=== PATIENT | female | born 1985 ===

== ENCOUNTER 2017-03-31 15:22 | Emergency (ER) | payer SELFPAY ==
[2017-03-31 15:22] VITALS: BMI 28.3
[2017-03-31 15:42] VITALS: BP 128/72; PULSE 64; RESP 18; TEMP 98.9; O2SAT 99
[2017-03-31] MEDS ORDERED: Lactated Ringer's 1,000 ML IV STA (16:13)
--- NOTE | 2017-03-31 16:17 | ED PDOC ---
Syncope/Near Syncope/Dizziness History Per: Patient History/Exam Limitations: no limitations Onset/Duration Of Symptoms: Days Current Symptoms Are (Timing): Still Present Activity At Onset Of Symptoms: Lying, Sitting, Walking, Change In Head Position Associated Symptoms Preceding Syncopal Episode: Lightheadedness, Vertigo Seizure Or Post-ictal Symptoms: None Possible Causative Factor(s): Vertigo Fall Associated With With Symptoms: No Additional Complaint(s): CC: dizziness HPI: 31 y/o woman w/ PMH of gastritis (EGD 03/2017) presents to the ED with dizziness. The patient reports that the dizziness has been going on for 1 week with complaints of bilateral diplopia, fatigue, low appetite, and epigastric pain radiating to her back. The patient denies nausea, vomiting, palpitations, LOC, and head trauma. The patient describes the dizziness as the "room spinning " while sitting and walking. The patient works as a housekeeper/laundry assistant for an office building and states that she drinks little water because she is busy working. The patient does not smoke, consume alcohol, or use drugs. The patient denies headaches, chest pain, SOB, dysuria, and fever. PMH: gastritis PSH: EGD 03/2016 SOC: denies smoking, alcohol, and drugs ROS: negative for 12 points assessed unless otherwise reported in HPI - Symptoms Of CVA Character Of Deficits: Left: Vision Problems (bilateral diplopia), Right: Vision Problems Current Coumadin Use?: No Recent Head Trauma: No - Risk Factors PE Risk Factors: Neg: Extremity Immobilization/Fx, Decreased Mobilty /Activity, Recent Major Surgery, Recent Hospitalization, Active Cancer, Previous DVT, Previous PE, CHF, Venous Stasis, Estrogen Usage, , Post-, Recent Major Trauma TAD Risk Factors: Neg: Hypertension, Connective Tissue Disease, Marfan's Syndrome, Grover- Danlos Syndrome, Aortic Valve Disease, Active , Tumer's Syndrome, First Degree Relative With TAD, Sudden Onset Of Pain, Migration Of Pain, New Neurologic Symptoms Risk Factors (Syncope): Neg: H/O Ventricular Arrhythmias, Known Coronary Artery Disease, H/O Severe Valvular Disease, Congestive Heart Failure, H/O Congenital Heart Disease, Family History Of Sudden , Exertional Syncope, Brugada Syndrome <Pablo Hendrix - Last Filed: 03/31/17 17:34> <Brenda Ricks - Last Filed: 03/31/17 17:38> Time Seen by Provider: 03/31/17 15:50 Chief Complaint (Nursing): Abdominal Pain Supervising Attending Note - Supervising Attending Note The Documented history was done by the: Physician Icing Mixer, Attending Physician The documented physical exam was done by the: Physician Icing Mixer, Attending Physician - Attestation: I have personally seen and examined this patient.: Yes I have fully participated in the care of the patient.: Yes I have reviewed all pertinent clinical information: Yes <Brenda Ricks - Last Filed: 03/31/17 17:38> Past Medical History Vital Signs: Last Vital Signs Temp 98.9 F 03/31/17 15:39 Pulse 64 03/31/17 15:39 Resp 18 03/31/17 15:39 BP 128/72 03/31/17 15:39 Pulse Ox 99 03/31/17 15:39 - Medical History PMH: Gastritis, Hypercholesterolemia Denies: Chronic Kidney Disease - Family History Family History: States: Unknown Family Hx - Immunization History Hx Tetanus Toxoid Vaccination: No Hx Influenza Vaccination: No Hx Pneumococcal Vaccination: No <Pablo Hendrix - Last Filed: 03/31/17 17:34> Vital Signs: Last Vital Signs Temp 98.9 F 03/31/17 15:39 Pulse 64 03/31/17 15:39 Resp 18 03/31/17 15:39 BP 128/72 03/31/17 15:39 Pulse Ox 99 03/31/17 17:34 <Brenda Ricks - Last Filed: 03/31/17 17:38> - Home Medications Home Medications: Ambulatory Orders Medication Instructions Recorded Meclizine [Antivert] 25 mg PO Q6 PRN #30 tab 03/31/17 - Allergies Allergies/Adverse Reactions: Allergies Allergy/AdvReac Type Severity Reaction Status Date / Time No Known Allergies Allergy Verified 04/20/16 08:33 Review of Systems ROS Statement: Except As Marked, All Systems Reviewed And Found Negative Constitutional: Positive for: Weakness. Negative for: Fever, Chills, Sweats, Weight loss Eyes: Positive for: Vision Change (bilateral diplopia) ENT: Negative for: Ear Pain Cardiovascular: Negative for: Chest Pain, Palpitations, Orthopnea Respiratory: Negative for: Cough, Shortness of Breath, Wheezing Gastrointestinal: Negative for: Nausea, Vomiting, Diarrhea Genitourinary Female: Negative for: Dysuria Skin: Negative for: Rash Neurological: Positive for: Weakness, Dizziness. Negative for: Change in Speech , Confusion, Altered Mental Status, Headache <Pablo Hendrix - Last Filed: 03/31/17 17:34> Physical Exam - Physical Exam Appears: Positive for: No Acute Distress Head Exam: Positive for: ATRAUMATIC, NORMOCEPHALIC Skin: Positive for: Pallor Eye Exam: Positive for: EOMI, PERRL. Negative for: Nystagmus ENT: Positive for: Normal ENT Inspection Neck: Positive for: Painless ROM, Supple Cardiovascular/Chest: Positive for: Regular Rate, Rhythm, Chest Non Tender. Negative for: Edema, Murmur, Bradycardia, Tachycardia Respiratory: Positive for: Normal Breath Sounds. Negative for: Decreased Breath Sounds, Accessory Muscle Use, Wheezing, Respiratory Distress Pulses-Carotid (L): 2+ Pulses-Carotid (R): 2+ Pulses-Dorsalis Pedis (L): 2+ Pulses-Dorsalis Pedis (R): 2+ Pulses-Post. Tibialis (L): 2+ Pulses-Post. Tibialis (R): 2+ Pulses-Radial (L): 2+ Pulses-Radial (R): 2+ Gastrointestinal/Abdominal: Positive for: Bowel Sounds, Soft, Tenderness (RLQ tenderness, negative Dejesus's sign). Negative for: Mass, Distended, Guarding Extremity: Negative for: Tenderness, Pedal Edema, Calf Tenderness Neurologic/Psych: Positive for: Alert, construction materials tester II-XII, Oriented. Negative for: Motor/Sensory Deficits, Aphasia, Facial Droop <Pablo Hendrix - Last Filed: 03/31/17 17:34> - Laboratory Results Result Diagrams: 03/31/17 16:20 03/31/17 16:20 - ECG O2 Sat by Pulse Oximetry: 99 <Pablo Hendrix - Last Filed: 03/31/17 17:34> - Laboratory Results Result Diagrams: 03/31/17 16:20 03/31/17 16:20 <Brenda Ricks - Last Filed: 03/31/17 17:38> Medical Decision Making Medical Decision Makin31 y/o woman w/ PMH of gastritis (EGD 03/2017) presents to the ED with dizziness CBC w/ diff: WNL CMP: WNL magnesium: wNL lipase: WNL UA: WNL EKG: sinus bradycardia, no ST segment elevation/depression, no prolonged QT, no prolonged segments IV NS bolus meclizine 50 mg PO re-evaluated 17:30 patient feels better meclizine helped Dispo: discharge home, counseled to follow up w/ PMD, discharged w/ meclizine 25 mg PO Q6 #30 <Pablo Hendrix - Last Filed: 03/31/17 17:34> Disposition - Patient ED Disposition Is Patient to be Admitted: No Discussed With Dr.: Brenda Ricks Counseled Patient/Family Regarding: Studies Performed, Diagnosis, Need For Followup, Rx Given - Disposition Disposition: Routine/Home Disposition Time: 17:33 - POA Present On Arrival: None <Pablo Hendrix - Last Filed: 03/31/17 17:34> <Brenda Ricks - Last Filed: 03/31/17 17:38> - Clinical Impression Clinical Impression: Vertigo, BPPV (benign paroxysmal positional vertigo) - Disposition Referrals: [facility] [Outside] Condition: IMPROVED Prescriptions: Meclizine [Antivert] 25 mg PO Q6 PRN #30 tab PRN Reason: Dizziness Instructions: Dizziness (ED) Print Language: ENGLISH
[2017-03-31 16:44] LABS: BASO # 0.1 K/uL (0.0-0.2); EOS # 0.2 K/uL (0.0-0.7); EOS % 1.8 % (0.0-4.0); HEMOGLOBIN 12.2 g/dL (12.0-16.0); LYMPH # 3.6 K/uL (1.0-4.3); LYMPH % 34.8 % (20.0-40.0); MEAN CELL VOLUME 86.2 fl (81.0-99.0); MEAN CORPUSCULAR HEMOGLOBIN 28.7 pg (27.0-31.0); MEAN CORPUSCULAR HGB CONC 33.2 g/dL (33.0-37.0); MEAN PLATELET VOLUME 8.3 fl (7.2-11.7); MONO # 0.5 K/uL (0.0-0.8); MONO % 4.8 % (0.0-10.0); NEUT % 57.6 % (50.0-75.0); NRBC % 0.1 % (0.0-0.0); RBC 4.25 Mil/uL (3.80-5.20); RED CELL DISTRIBUTION WIDTH 13.5 % (11.5-14.5); WHITE BLOOD COUNT 10.4 K/uL (4.8-10.8)
[2017-03-31 16:47] LABS: SQUAMOUS EPITHIAL < 1 /hpf (0-5); URINE BACTERIA RARE (<OCC); URINE BILIRUBIN NEGATIVE (NEGATIVE); URINE BLOOD SMALL (NEGATIVE); URINE CLARITY CLEAR (Clear); URINE COLOR YELLOW (YELLOW); URINE GLUCOSE (UA) NEG (Normal); URINE LEUKOCYTE ESTERASE NEG Leu/uL (Negative); URINE NITRATE NEGATIVE (NEGATIVE); URINE PROTEIN NEGATIVE (NEGATIVE); URINE UROBILINOGEN 0.2-1.0 mg/dL (0.2-1.0)
[2017-03-31 16:56] LABS: ALB/GLOB RATIO 1.5 (1.0-2.1); ALBUMIN 4.3 g/dL (3.5-5.0); ALT/SGPT 30 U/L (9-52); AST/SGOT 28 U/L (14-36); BLOOD UREA NITROGEN 13 mg/dl (7-17); CALCIUM 9.4 mg/dL (8.4-10.2); GFR AFRICAN-AMERICAN > 60; GFR NON-AFRICAN AMERICAN > 60; LIPASE 97 U/L (23-300)
--- NOTE | 2017-04-01 08:12 | CARD ---
APPROVED REPORT EKG Measurement Heart [id number] <Conclusion> Sinus bradycardia Otherwise normal ECG
== END 2017-03-31 17:45 | disposition home or self-care (01) ==
LOC: H.ER 15:22
DX: R42 Dizziness and giddiness (principal); E78.00 Pure hypercholesterolemia, unspecified

== ENCOUNTER 2017-04-18 15:09 | Emergency (ER) | payer OTHER, SELFPAY ==
[2017-04-18 15:09] VITALS: BMI 28.3
[2017-04-18 15:38] VITALS: BP 137/61; PULSE 58; RESP 18; TEMP 98.3; O2SAT 99
[2017-04-18] MEDS ORDERED: Alum-Mag Hydrox-Simethicone Susp (30 mL) PO STA (16:31)
--- NOTE | 2017-04-18 16:39 | ED PDOC ---
HPI: Abdomen Time Seen by Provider: 04/18/17 16:14 Chief Complaint (Nursing): GI Problem Chief Complaint (Provider): Epigastric Pain History Per: Patient History/Exam Limitations: no limitations Onset/Duration Of Symptoms: Days (x3) Current Symptoms Are (Timing): Still Present Location Of Pain/Discomfort: Epigastric Additional Complaint(s): Kandace Bunch is a 31 year old female, with a past medical history of gastritis and hypercholesterolemia, who presents to the emergency department complaining of epigastric pain associated with nausea and vomit onset for 3 days secondary to right posterior shoulder pain. Patient states that she did not feel nauseous today but that she has not eaten. She denies any further medical complaints. PMD: None provided Past Medical History Reviewed: Historical Data, Nursing Documentation, Vital Signs Vital Signs: Last Vital Signs Temp 98.3 F 04/18/17 15:34 Pulse 58 L 04/18/17 15:34 Resp 18 04/18/17 15:34 BP 137/61 04/18/17 15:34 Pulse Ox 99 04/18/17 16:54 - Medical History PMH: Gastritis, Hypercholesterolemia Denies: Chronic Kidney Disease - Surgical History Surgical History: No Surg Hx - Family History Family History: States: Unknown Family Hx - Social History Current smoker - smoking cessation education provided: No Alcohol: None Drugs: Denies - Immunization History Hx Tetanus Toxoid Vaccination: No Hx Influenza Vaccination: No Hx Pneumococcal Vaccination: No - Home Medications Home Medications: Ambulatory Orders Medication Instructions Recorded Meclizine [Antivert] 25 mg PO Q6 PRN #30 tab 03/31/17 Famotidine [Pepcid] 20 mg PO BID #28 tab 04/18/17 - Allergies Allergies/Adverse Reactions: Allergies Allergy/AdvReac Type Severity Reaction Status Date / Time No Known Allergies Allergy Verified 04/20/16 08:33 Review of Systems ROS Statement: Except As Marked, All Systems Reviewed And Found Negative Gastrointestinal: Positive for: Nausea (x3 days), Vomiting (x3 days), Abdominal Pain (epigastric pain) Musculoskeletal: Positive for: Shoulder Pain (right posterior ) Physical Exam - Reviewed Nursing Documentation Reviewed: Yes Vital Signs Reviewed: Yes - Physical Exam Appears: Positive for: Well, Non-toxic, No Acute Distress Head Exam: Positive for: ATRAUMATIC, NORMAL INSPECTION, NORMOCEPHALIC Skin: Positive for: Normal Color, Warm, Dry Eye Exam: Positive for: Normal appearance ENT: Positive for: Normal ENT Inspection Neck: Positive for: Normal Cardiovascular/Chest: Positive for: Regular Rate, Rhythm Respiratory: Positive for: Normal Breath Sounds. Negative for: Respiratory Distress Gastrointestinal/Abdominal: Positive for: Tenderness (mild epigastric). Negative for: Normal Exam, Guarding, Rebound Neurologic/Psych: Positive for: Alert, Oriented - Laboratory Results Result Diagrams: 04/18/17 17:20 04/18/17 17:20 - ECG O2 Sat by Pulse Oximetry: 99 (RA) Pulse Ox Interpretation: Normal Medical Decision Making Medical Decision Making: Initial Impression: Epigastric Pain Initial Plan: --Comp Metabolic Panel --Lipase --CBC w/ differential --Maalox Plus 30 ml --Abdomen Limited (GB included) [US] --Reevaluation Pt reports feeling better on re-evaluation. Pt Us - Fatty liver without GB disease Scribe Attestation: Documented by Lam Martinez, acting as a scribe for Elizabeth CROSS. Provider Scribe Attestation: All medical record entries made by the Scribe were at my direction and personally dictated by me. I have reviewed the chart and agree that the record accurately reflects my personal performance of the history, physical exam, medical decision making, and the department course for this patient. I have also personally directed, reviewed, and agree with the discharge instructions and disposition. Disposition - Clinical Impression Clinical Impression: Gastritis - Patient ED Disposition Is Patient to be Admitted: No Counseled Patient/Family Regarding: Diagnosis, Need For Followup, Rx Given - Disposition Referrals: [facility] [Outside] Disposition: Routine/Home Disposition Time: 18:57 Condition: GOOD Prescriptions: Famotidine [Pepcid] 20 mg PO BID #28 tab Instructions: Gastritis (ED) Print Language: CZECH
[2017-04-18] MEDS ORDERED: Alum-Mag Hydrox-Simethicone Susp (30 mL) ONE (17:19)
[2017-04-18 17:29] LABS: BASO # 0.1 K/uL (0.0-0.2); BASO % 0.7 % (0.0-2.0); EOS # 0.3 K/uL (0.0-0.7); EOS % 3.8 % (0.0-4.0); HEMOGLOBIN 12.1 g/dL (12.0-16.0); LYMPH # 3.9 K/uL (1.0-4.3); LYMPH % 41.9 % (20.0-40.0); MEAN CELL VOLUME 86.2 fl (81.0-99.0); MEAN CORPUSCULAR HEMOGLOBIN 28.7 pg (27.0-31.0); MEAN CORPUSCULAR HGB CONC 33.3 g/dL (33.0-37.0); MEAN PLATELET VOLUME 8.3 fl (7.2-11.7); MONO # 0.5 K/uL (0.0-0.8); MONO % 5.9 % (0.0-10.0); NEUT # 4.4 K/uL (1.8-7.0); NEUT % 47.7 % (50.0-75.0); RBC 4.2 Mil/uL (3.80-5.20); RED CELL DISTRIBUTION WIDTH 13.2 % (11.5-14.5); WHITE BLOOD COUNT 9.3 K/uL (4.8-10.8)
[2017-04-18 17:46] LABS: ALB/GLOB RATIO 1.4 (1.0-2.1); ALBUMIN 4.2 g/dL (3.5-5.0); ALT/SGPT 38 U/L (9-52); AST/SGOT 24 U/L (14-36); BLOOD UREA NITROGEN 8 mg/dl (7-17); CALCIUM 8.9 mg/dL (8.4-10.2); GFR AFRICAN-AMERICAN > 60; GFR NON-AFRICAN AMERICAN > 60; LIPASE 60 U/L (23-300)
--- NOTE | 2017-04-18 18:42 | US ---
HISTORY: epigastric pain, right should pain COMPARISON: CT abdomen and pelvis with contrast performed 04/17/16, limited abdominal ultrasound performed 04/17/16 TECHNIQUE: Sonographic evaluation of the right upper quadrant of the abdomen. FINDINGS: LIVER: Measures 14.4 cm in length. Echogenic liver may be seen in setting of hepatic parenchymal disease or fatty infiltration. No focal hepatic mass identified. The main portal vein appears patent with normal directional flow. No intrahepatic bile duct dilatation. GALLBLADDER: No gallstones. No gallbladder wall thickening or pericholecystic edema. Negative sonographic Dejesus's sign as assessed by the paralegal supervisor. COMMON BILE DUCT: Measures 3 mm. PANCREAS: Not well-visualized. RIGHT KIDNEY: Measures 12.0 x 4.7 x 4.3 cm. No obstructing calculus or hydronephrosis identified. AORTA: Limited visualization appears grossly unremarkable. IVC: Limited visualization appears grossly unremarkable. OTHER FINDINGS: None . IMPRESSION: Echogenic liver may be seen in setting of hepatic parenchymal disease or fatty infiltration.
== END 2017-04-18 19:12 | disposition home or self-care (01) ==
LOC: H.ER 15:09
DX: R10.13 Epigastric pain (principal); K29.70 Gastritis, unspecified, without bleeding; E78.00 Pure hypercholesterolemia, unspecified

== ENCOUNTER 2017-06-06 09:25 | Emergency (ER) | payer OTHER ==
[2017-06-06 09:29] VITALS: BP 112/70; PULSE 64; TEMP 97; O2SAT 100
[2017-06-06 09:30] VITALS: BMI 26.5
[2017-06-06 09:52] VITALS: RESP 19
--- NOTE | 2017-06-06 10:20 | ED PDOC ---
HPI: Female Pain Time Seen by Provider: 06/06/17 09:43 Chief Complaint (Nursing): Female Genitourinary Chief Complaint (Provider): Dysuria History Per: Patient History/Exam Limitations: no limitations Onset/Duration Of Symptoms: Days (1 month) Current Symptoms Are (Timing): Still Present Additional Complaint(s): Pt. with dysuria. Urgency. Burning also in urine after sex. No abd pain, back pain, nausea, vomit, diarrhea, weakness, fever, chills. Past Medical History Reviewed: Nursing Documentation, Vital Signs Vital Signs: Last Vital Signs Temp 97 F L 06/06/17 09:48 Pulse 64 06/06/17 09:48 Resp 19 06/06/17 09:48 BP 112/70 06/06/17 09:48 Pulse Ox 100 06/06/17 09:48 - Medical History PMH: Gastritis Denies: Chronic Kidney Disease - Surgical History Surgical History: No Surg Hx - Family History Family History: States: Unknown Family Hx - Living Arrangements Living Arrangements: With Family - Social History Current smoker - smoking cessation education provided: No Alcohol: None Drugs: Denies - Immunization History Hx Tetanus Toxoid Vaccination: No Hx Influenza Vaccination: No Hx Pneumococcal Vaccination: No - Home Medications Home Medications: Ambulatory Orders Medication Instructions Recorded Meclizine [Antivert] 25 mg PO Q6 PRN #30 tab 03/31/17 Famotidine [Pepcid] 20 mg PO BID #28 tab 04/18/17 Ciprofloxacin HCl [Cipro] 250 mg PO BID #6 tab 06/06/17 Ibuprofen [Motrin] 600 mg PO TID 7 Days 06/06/17 - Allergies Allergies/Adverse Reactions: Allergies Allergy/AdvReac Type Severity Reaction Status Date / Time No Known Allergies Allergy Verified 04/20/16 08:33 Review of Systems Constitutional: Negative for: Fever, Weakness Cardiovascular: Negative for: Chest Pain Respiratory: Negative for: Cough, Shortness of Breath Gastrointestinal: Negative for: Nausea, Vomiting, Abdominal Pain Genitourinary Female: Positive for: Dysuria, Frequency. Negative for: Vaginal Discharge, Vaginal Bleeding Musculoskeletal: Negative for: Neck Pain Skin: Negative for: Rash Neurological: Negative for: Weakness Physical Exam - Reviewed Nursing Documentation Reviewed: Yes Vital Signs Reviewed: Yes - Physical Exam Appears: Positive for: Non-toxic, No Acute Distress Head Exam: Positive for: ATRAUMATIC, NORMAL INSPECTION, NORMOCEPHALIC Skin: Positive for: Normal Color, Warm, DRY Neck: Positive for: Normal, Painless ROM Cardiovascular/Chest: Positive for: Regular Rate, Rhythm Respiratory: Positive for: CNT, Normal Breath Sounds Gastrointestinal/Abdominal: Positive for: Bowel Sounds, Soft, Tenderness ( suprapubic; nontenderness left or right upper or lower quadrant tenderness) Back: Positive for: Normal Inspection. Negative for: L CVA Tenderness, R CVA Tenderness Extremity: Positive for: Normal ROM. Negative for: Tenderness, Pedal Edema Neurologic/Psych: Positive for: Alert, Oriented - Laboratory Results Urine dip results: Positive for: Leukocyte Esterase - ECG O2 Sat by Pulse Oximetry: 100 Pulse Ox Interpretation: Normal - Progress ED Course And Treament: 1021: Stable. AAOx3. Pain free. Tolerated PO. Fu with pcp. Disposition - Clinical Impression Clinical Impression: Urinary tract infection - Patient ED Disposition Is Patient to be Admitted: No Counseled Patient/Family Regarding: Studies Performed, Diagnosis, Need For Followup, Rx Given - Disposition Referrals: [facility] [Outside] - 06/07/17 Disposition: Routine/Home Disposition Time: 10:22 Condition: STABLE Additional Instructions: Return if not better in 3 days. Prescriptions: Ciprofloxacin HCl [Cipro] 250 mg PO BID #6 tab Ibuprofen [Motrin] 600 mg PO TID 7 Days Instructions: Urinary Tract Infection in Women (ED) Print Language: SAUDI ARABIAN
== END 2017-06-06 10:53 | disposition home or self-care (01) ==
LOC: H.ER 09:25
DX: R39.15 Urgency of urination (principal); N39.0 Urinary tract infection, site not specified

== ENCOUNTER 2017-12-22 23:09 | Inpatient (IN) | payer SELFPAY ==
[2017-12-22 23:09] VITALS: BMI 26.5
[2017-12-23] MEDS ORDERED: Lactated Ringer's 1,000 ML IV STA (00:50)
[2017-12-23 01:07] LABS: BASO % 0.3 % (0.0-2.0); EOS # 0.4 K/uL (0.0-0.7); EOS % 2.5 % (0.0-4.0); HEMOGLOBIN 11.1 g/dL (12.0-16.0); LYMPH # 3.6 K/uL (1.0-4.3); LYMPH % 25.5 % (20.0-40.0); MEAN CELL VOLUME 86.5 fl (81.0-99.0); MEAN CORPUSCULAR HEMOGLOBIN 29.3 pg (27.0-31.0); MEAN CORPUSCULAR HGB CONC 33.9 g/dL (33.0-37.0); MONO # 0.9 K/uL (0.0-0.8); MONO % 6.5 % (0.0-10.0); NEUT # 9.2 K/uL (1.8-7.0); NEUT % 65.2 % (50.0-75.0); NRBC % 0.1 % (0.0-0.0); RBC 3.78 Mil/uL (3.80-5.20); RED CELL DISTRIBUTION WIDTH 13.4 % (11.5-14.5); WHITE BLOOD COUNT 14.2 K/uL (4.8-10.8)
[2017-12-23 01:16] LABS: ALB/GLOB RATIO 1.2 (1.0-2.1); ALBUMIN 3.9 g/dL (3.5-5.0); ALT/SGPT 32 U/L (9-52); AST/SGOT 19 U/L (14-36); BLOOD UREA NITROGEN 12 mg/dl (7-17); CALCIUM 8.8 mg/dL (8.4-10.2); GFR AFRICAN-AMERICAN > 60; GFR NON-AFRICAN AMERICAN > 60
--- NOTE | 2017-12-23 03:03 | ED PDOC ---
HPI: Female Pain Time Seen by Provider: 12/23/17 00:15 Chief Complaint (Nursing): Female Genitourinary Chief Complaint (Provider): Female Genitourinary History Per: Patient History/Exam Limitations: no limitations Onset/Duration Of Symptoms: Hrs (x1) Current Symptoms Are (Timing): Still Present Associated Symptoms: denies: Nausea, Vomiting, Urinary Symptoms Additional Complaint(s): Kandace Bunch is a 32 year old female with no significant past medical history, who is presenting to the ER with complaints of pelvic pain and vaginal bleeding onset 1 hour prior to arrival. Patient states that last week, she had some spotting and thought it was her period, but 1 hour prior to arrival to the ED, she noted heavy vaginal bleeding and severe pelvic pain, for which she took no medications. She admits to stopping her control pills 2 months ago and states she does not use protection during intercourse. Patient is unsure if she is and does not have an OBGYN. She denies any dysuria, frequency, nausea, or vomiting. PMD: none provided Past Medical History Reviewed: Historical Data, Nursing Documentation, Vital Signs Vital Signs: Last Vital Signs Temp 98.4 F 12/23/17 00:04 Pulse 77 12/23/17 00:04 Resp 18 12/23/17 00:04 BP 109/74 12/23/17 00:04 Pulse Ox 97 12/23/17 00:04 - Medical History PMH: Gastritis, Hypercholesterolemia Denies: Chronic Kidney Disease - Surgical History Surgical History: No Surg Hx - Family History Family History: States: Unknown Family Hx - Social History Current smoker - smoking cessation education provided: No Alcohol: None - Immunization History Hx Tetanus Toxoid Vaccination: No Hx Influenza Vaccination: No Hx Pneumococcal Vaccination: No - Home Medications Home Medications: Ambulatory Orders Medication Instructions Recorded Meclizine [Antivert] 25 mg PO Q6 PRN #30 tab 03/31/17 Famotidine [Pepcid] 20 mg PO BID #28 tab 04/18/17 Ciprofloxacin HCl [Cipro] 250 mg PO BID #6 tab 06/06/17 Ibuprofen [Motrin] 600 mg PO TID 7 Days tab 06/06/17 - Allergies Allergies/Adverse Reactions: Allergies Allergy/AdvReac Type Severity Reaction Status Date / Time No Known Allergies Allergy Verified 04/20/16 08:33 Review of Systems ROS Statement: Except As Marked, All Systems Reviewed And Found Negative Gastrointestinal: Negative for: Nausea, Vomiting Genitourinary Female: Positive for: Vaginal Bleeding, Pelvic Pain. Negative for : Dysuria, Frequency Physical Exam - Reviewed Nursing Documentation Reviewed: Yes Vital Signs Reviewed: Yes - Physical Exam Appears: Positive for: In Acute Distress (painful) Gastrointestinal/Abdominal: Positive for: Tenderness (suprapubic tenderness to palpation) - Laboratory Results Result Diagrams: 12/23/17 00:55 12/23/17 00:55 - ECG O2 Sat by Pulse Oximetry: 97 (RA) Pulse Ox Interpretation: Normal Medical Decision Making Medical Decision Making: Time: 00:55 Impression: Vaginal Bleeding, Differentials (including but not limited to): threatened miscarriage, UTI, Ectopic , dehydration Plan: --Blood Type and Screen --Beta-HCG Quantitative --CMP --ED Urine --ED Urine Dipstick --CBC --Chlamydia GC/RNA, TMA --Lactated RInger's 1,000 ml --Tylenol 975 mg PO --US OB Transvaginal EXAM: US First Trimester, Transabdominal US , Transvaginal CLINICAL HISTORY: 32 years old, female; Pain; complicated by abdominal or pelvic pain; Other: Generalized pelvic pain; Gestational age or lmp: 10/30/2017; ; Additional info: Pelvic pain and R/O ectopic TECHNIQUE: Real-time transabdominal and transvaginal obstetrical ultrasound of the maternal pelvis and a first trimester with image documentation. Transvaginal imaging was used for better evaluation of the fetus and adnexa. 5 Real time cine loop images are submitted.Grayscale, color and spectral pulse Doppler images are submitted.A duplex/doppler ultrasound was performed specifically BOTH COLOR FLOW AND spectral Doppler analysis (waveforms) were performed and interpreted. Grayscale, color and spectral pulse Doppler images are submitted.A duplex/ doppler ultrasound was performed specifically BOTH COLOR FLOW AND spectral Doppler analysis (waveforms ) were performed and interpreted. COMPARISON: No relevant prior studies available. FINDINGS: Beta-hCG level: Beta-hCG 2157.54 Gestation: No IUP seen. Uterus/cervix: Thickened heterogeneous endometrial stripe measures 14 mm. Ovaries: The left ovary measures 2.9 x 2.9 x 1.6 cm. Duplex assessment demonstrates presence of color Doppler signal and spectral Doppler waveform in left ovary. There is a large right adnexal mass medial to right ovary measuring 5.5 x 3.5 x 5.0 cm. the right ovary is measured with the mass and is suspicious for ectopic . Duplex assessment demonstrates presence of color Doppler signal and spectral Doppler waveform in right ovary. Free fluid: Moderate to large complex fluid with internal echoes suspicious for blood. IMPRESSION: Right adnexal mass with complex pelvic fluid and blood suspicious for ruptured ectopic . Thank you for allowing us to participate in the care of your patient. Dictated and Authenticated by: Sandra Lee MD 12/23/2017 3:28 AM Eastern Time ([place] & [place]) OBDULIO Kumar OB rehabilitation program coordinator who will come to see pt DW pt findings. [address] Dr Kumar in ER to evaluate patient Scribe Attestation: Documented by Natasha Trinh acting as a scribe for Brenda Ricks MD. Scribe Attestation: All medical record entries made by the Scribe were at my direction and personally dictated by me. I have reviewed the chart and agree that the record accurately reflects my personal performance of the history, physical exam, medical decision making, and the department course for this patient. I have also personally directed, reviewed, and agree with the discharge instructions and disposition. Disposition - Disposition Forms: [email or web address] (Kyrgyz)
[2017-12-23] MEDS ORDERED: Dextrose 5%/Lactated Ringer's 1,000 ML IV SCH (03:45)
[2017-12-23] MEDS ORDERED: Morphine 4 MG/ML VIAL ONE ×3 (04:08→10:22)
[2017-12-23 04:55] LABS: PARTIAL THROMBOPLASTIN TIME 30.7 Seconds (25.6-37.1)
[2017-12-23] MEDS ORDERED: Propofol 10 mg/ml Inj (20 ML) ONE (07:20)
[2017-12-23] MEDS ORDERED: Midazolam 2 MG/2 ML VIAL ONE (07:21)
[2017-12-23] MEDS ORDERED: Succinylcholine 200 mg/10 ml Inj IV ONE (07:21)
[2017-12-23] MEDS ORDERED: Neostigmine 1:1000 (1 mg/ml) Inj ONE (07:22)
[2017-12-23] MEDS ORDERED: Phenylephrine 10 mg/ml Inj ONE (07:23)
[2017-12-23] MEDS ORDERED: Rocuronium 10 mg/ml (5 ml) ONE (07:35)
--- NOTE | 2017-12-23 07:55 | CON ---
DATE: 12/23/2018 EMERGENCY ROOM CONSULTATION HISTORY OF PRESENT ILLNESS: This is a 32-year-old -0-0-1 with last menstrual period of 10/30/2017 who presented with left lower quadrant pain that she has had 2 weeks that became worse last night. The patients reports that she had a brown spotting about 2 weeks ago and had vaginal bleeding last night, passing clots. She reports that she did not know she was and she has stopped oral contraceptive pills about 2 months ago. This emergency department consult was called because the patient has a ruptured ectopic by ultrasound. PAST MEDICAL HISTORY: Healthy. PAST SURGICAL HISTORY: None. MEDICATIONS: None. ALLERGIES: NO KNOWN DRUG ALLERGIES. GYNECOLOGIC HISTORY: Menarche at 12 and history of regular period. The patient denies any STDs or any abnormal Pap smears. FAMILY HISTORY: Mother with diabetes. SOCIAL HISTORY: The patient denies tobacco, alcohol or illicit drug use. OBSTETRICAL HISTORY: In 2013, she underwent vaginal delivery of a male infant weighing 8 pounds. PHYSICAL EXAMINATION VITAL SIGNS: Afebrile. Vital signs are stable. GENERAL: The patient appears comfortable, lying in the stretcher. HEART: Regular rate and rhythm. CHEST AND LUNGS: Clear to auscultation bilaterally. ABDOMEN: Soft and diffusely tender. EXTREMITIES: Nontender. No edema. PELVIC: Vaginal exam was deferred. LABORATORY DATA: White count is 14.2, hemoglobin is 11.1, and platelets are 313. Comprehensive metabolic panel is within normal limits with a low creatinine of 0.4. Beta hCG Quant is 2157.3. IMAGING DATA: Pelvic ultrasound revealed a large right adnexal mass medial to the right ovary measuring 5.5 x 3.5 x 5 cm. The right ovary is measured with the mass and is suspicious for ectopic , moderate to large complex fluid with internal echo suspicious for blood. The impression is right adnexal mass with complex pelvic fluid and blood suspicious for ruptured ectopic . ASSESSMENT AND PLAN: This is a 32-year-old G2, P1-0-0-1 with a ruptured ectopic who is currently stable. Dr. Jose J Cotton, PGY1, spoke with the patient in [place] and informed consents were obtained for laparoscopic right salpingectomy, possible oophorectomy and for possible blood transfusion. All questions were answered. Anette Kumar MD MTDJai
[2017-12-23] MEDS ORDERED: Ferric Subsulfate Sol(60 mL) ONE (08:10)
[2017-12-23] MEDS ORDERED: Bupivacaine 0.5% Inj(30mL) ONE (08:10)
[2017-12-23] MEDS ORDERED: Lactated Ringer's 1,000 ML IV ONE ×3 (09:28→11:35)
[2017-12-23] MEDS: Morphine 4 MG/ML VIAL IVP PRN ×2 (10:02→10:15)
[2017-12-23] MEDS ORDERED: Lactated Ringer's 1,000 ML IV SCH (10:15)
--- NOTE | 2017-12-23 10:29 | US ---
PROCEDURE: OB Pelvic Ultrasound HISTORY: pelvic pain and r/o ectopic LMP: 10/30/2017. Serum beta HCG 2157 COMPARISON: None available. FINDINGS: UTERUS: Uterus measures 7.5 x 5.0 x 4.2 cm. Anteverted. Normal in size and appearance. Endometrium measures 13 mm with heterogeneous echotexture. No intrauterine gestation. RIGHT OVARY: Adnexal mass adjacent to right ovary measuring 5.5 x 5.0 x 3.5 cm. Inhomogeneous with surrounding free fluid. Normal flow. Extreme tenderness over area. LEFT OVARY: Measures 2.9 x 2.9 x 1.6 cm. No solid mass. Normal flow. FREE FLUID: Free fluid surrounding right ovary. OTHER FINDINGS: None. IMPRESSION: Right adnexal mass with complex pelvic fluid and fluid suspicious for ruptured ectopic .
[2017-12-23 12:21] VITALS: BP 97/60; PULSE 96; RESP 20; TEMP 98.3; O2SAT 100
--- NOTE | 2017-12-23 13:36 | CP.PCM.CON ---
History of Present Illness - History of Present Illness History of Present Illness: FM consult note Attending: Dr. Jennifer Bustos I was called to seen a 32 y/o F , and no significant PMHx admitted with ruptured ectopic reported in transvaginal ultrasound, s/p laparoscopic right salpingectomy by CUSTOMER SUCCESS REPRESENTATIVE/OB on POD #0 because abnormal findings noted in surveillance monitor during surgery and in EKG done after surgery. Patient denies a prior medical history, no taking any medications at home, however she states that at age 25 was seen by a doctor's office in [place] who did a "test" and told her she had a " mild murmur", and did not recommend any cardiology evaluation or further cardiac test. Patient denies any history of chest pain, SOB, palpitations, N/V, dizziness, or LOC episodes. She reports she feels a "chest tightness" sensation when she gets "emotional" with no associated symptoms. Patient was seen and evaluated at bedside, and she denies any chest pain, SOB, dizziness/lightheadedness, headaches, palpitations at this evaluation. Tolerating PO, passing gas per rectum, but has not had a bowel movement after surgery. PMHx:Reports a h/o gastritis? Meds: none Allergies: NKDA FHx: MOther: DM, Grandfather ( [place] at age 77) SHx: Laparoscopic right salpingectomy/ruptured ectopic SocialHx: Never smoker, etoh occasional, denies illicit drugs ENVIRONMENTAL HEALTH SAFETY ENGINEER: LMP: 10/30/17. ( 2 spontaneous , 1 ectopic ) Patient number: [phone] Review of Systems - Review of Systems All systems: reviewed and no additional remarkable complaints except (as per HPI ) Past Patient History - Past Medical History & Family History Past Medical History?: Yes - Past Social History Smoking Status: Never Smoked - CARDIAC Hx Hypercholesterolemia: Yes - PULMONARY Hx Respiratory Disorders: No - NEUROLOGICAL Hx Neurological Disorder: No - HEENT Hx HEENT Problems: No - RENAL Hx Chronic Kidney Disease: No - ENDOCRINE/METABOLIC Hx Endocrine Disorders: No - HEMATOLOGICAL/ONCOLOGICAL Hx Blood Disorders: No - INTEGUMENTARY Hx Dermatological Problems: No - MUSCULOSKELETAL/RHEUMATOLOGICAL Hx Falls: No - GASTROINTESTINAL Hx Gastritis: Yes - GENITOURINARY/GYNECOLOGICAL Hx Genitourinary Disorders: No - PSYCHIATRIC Hx Psychophysiologic Disorder: No - SURGICAL HISTORY Hx Surgeries: No - ANESTHESIA Hx Anesthesia: No Meds Home Medications: Home Medication List Medication Instructions Recorded Confirmed Type Ibuprofen [Motrin Tab] 600 mg PO Q6 PRN #30 tab 12/23/17 Rx oxyCODONE/Acetaminophen [Percocet 1 ea PO Q4 PRN #25 tab 12/23/17 Rx 5/325 mg Tab] Allergies/Adverse Reactions: Allergies Allergy/AdvReac Type Severity Reaction Status Date / Time No Known Allergies Allergy Verified 04/20/16 08:33 - Medications Medications: Current Medications Dextrose/Lactated Ringer's (Dextrose 5%/Lactated Ringer's) 1,000 mls @ 100 mls/ hr IV .Q10H ALMITA Last Admin: 12/23/17 04:18 Dose: 100 mls/hr Lactated Ringer's (Lactated Ringer's) 1,000 mls @ 100 mls/hr IV .Q10H ALMITA Physical Exam - Constitutional Appears: Non-toxic, No Acute Distress - Head Exam Head Exam: ATRAUMATIC, NORMAL INSPECTION - Eye Exam Eye Exam: EOMI, Normal appearance, PERRL - ENT Exam ENT Exam: Mucous Membranes Moist - Respiratory Exam Respiratory Exam: Clear to Auscultation Bilateral, NORMAL BREATHING PATTERN. absent: Accessory Muscle Use, Decreased Breath Sounds, Rales, Rhonchi, Wheezes, Respiratory Distress - Cardiovascular Exam Cardiovascular Exam: REGULAR RHYTHM, RRR, +S1, +S2. absent: Bradycardia, Tachycardia, Gallop, Rubs - GI/Abdominal Exam GI & Abdominal Exam: Normal Bowel Sounds, Soft. absent: Distended, Guarding, Rigid, Tenderness - Extremities Exam Extremities exam: Positive for: normal inspection. Negative for: calf tenderness, pedal edema - Neurological Exam Neurological exam: Alert, Oriented x3 - Skin Skin Exam: Dry, Intact, Normal Color Results - Vital Signs Recent Vital Signs: Last Vital Signs Temp 98.3 F 12/23/17 11:57 Pulse 96 H 12/23/17 11:57 Resp 20 12/23/17 11:57 BP 97/60 L 12/23/17 11:57 Pulse Ox 100 12/23/17 11:57 - Labs Result Diagrams: 12/23/17 00:55 12/23/17 00:55 Labs: Laboratory Results - last 24 hr 12/23/17 12/23/17 12/23/17 00:55 00:55 00:55 WBC 14.2 H D RBC 3.78 L Hgb 11.1 L Hct 32.7 L MCV 86.5 MCH 29.3 MCHC 33.9 RDW 13.4 Plt Count 313 MPV 8.0 Neut % (Auto) 65.2 Lymph % (Auto) 25.5 Josephine % (Auto) 6.5 Eos % (Auto) 2.5 Baso % (Auto) 0.3 Neut # (Auto) 9.2 H Lymph # (Auto) 3.6 Josephine # (Auto) 0.9 H Eos # (Auto) 0.4 Baso # (Auto) 0.0 PT INR APTT Sodium 139 Potassium 4.0 Chloride 104 Carbon Dioxide 23 Anion Gap 16 BUN 12 Creatinine 0.4 L Est GFR ( Amer) > 60 Est GFR (Non-Af Amer) > 60 Random Glucose 95 Calcium 8.8 Total Bilirubin 0.2 AST 19 ALT 32 Alkaline Phosphatase 83 Total Protein 7.2 Albumin 3.9 Globulin 3.3 Albumin/Globulin Ratio 1.2 Beta HCG, Quant 2157.30 Blood Type O POSITIVE Antibody Screen Negative Crossmatch See Detail BBK History Checked Patient has bt 12/23/17 04:15 WBC RBC Hgb Hct MCV MCH MCHC RDW Plt Count MPV Neut % (Auto) Lymph % (Auto) Josephine % (Auto) Eos % (Auto) Baso % (Auto) Neut # (Auto) Lymph # (Auto) Josephine # (Auto) Eos # (Auto) Baso # (Auto) PT 11.0 INR 1.0 APTT 30.7 Sodium Potassium Chloride Carbon Dioxide Anion Gap BUN Creatinine Est GFR ( Amer) Est GFR (Non-Af Amer) Random Glucose Calcium Total Bilirubin AST ALT Alkaline Phosphatase Total Protein Albumin Globulin Albumin/Globulin Ratio Beta HCG, Quant Blood Type Antibody Screen Crossmatch BBK History Checked Assessment & Plan - Assessment and Plan (Free Text) Assessment: 32 y/o F with h/o Gastritis? admitted with ruptured ectopic s/p Laparoscopic right salpingectomy on POD #0 with abnormal findings. Plan: Abnormal findings in EKG -asymptomatic -EKG with possible evidence of incomplete right bundle branch block ( V2) today morning -repeated EKG showed similar findings in V2, but no evidence of acute ST-T wave changes -Because patient is asymptomatic, and with no acute ST-T wave changes she seems stable to be discharge home and with f/u as outpatient. We strongly recommend follow up as outpatient with PMD at [facility]. Patient may need further cardiac work up, and possible cardiology referral. Patient has an appointment to see PMD at [facility] on 12/28/17 at 3:20 pm. ER precautions given if chest pain, SOB, or other worrisome symptom. -pain control as per ENVIRONMENTAL HEALTH SAFETY ENGINEER team -final disposition as per ENVIRONMENTAL HEALTH SAFETY ENGINEER team -case discussed with attending Dr. Bustos - Date & Time Date: 12/23/17 Time: 13:30
--- NOTE | 2017-12-23 14:14 | OP ---
PROCEDURE DATE: 12/23/2017 PREOPERATIVE DIAGNOSIS: This is a 32-year-old G2, P1-0-0-1 with ruptured ectopic . POSTOPERATIVE DIAGNOSIS: This is a 32-year-old G2, P1-0-0-1 with ruptured ectopic . PROCEDURE: Laparoscopic partial right salpingectomy and evacuation of blood clot. SURGEON: Anette Kumar MD ASSISTANTS: Drs. Jose Sheppard, Jose J Cotton, PGY1 and Sultan Moore, PGY1. Dr. Sheppard, the hospitalist, was the cutter first for the procedure. He helped support the tube while the LigaSure was used to remove the tube. He helped evacuate the fluid from the abdomen. This case could not have been completed without assistance. ESTIMATED BLOOD LOSS: About 100 mL. FINDINGS: Normal appearing anteverted uterus sounded to 8 cm. Right tube was engorged and there was blood clot present around the right tube. Normal appearing right ovary and normal appearing left tube and ovary. There was about 100 mL of blood clot in the abdomen. COMPLICATIONS: None. TYPE OF ANESTHESIA: General endotracheal tube anesthesia. ANESTHESIA ADMINISTERED BY: Jeremy De La Rosa MD. DESCRIPTION OF PROCEDURE: The patient was taken to the operating room with IV running and placed under general anesthesia. An OG tube was placed. She was then prepped and draped in the usual sterile fashion in the dorsal lithotomy position. A Strauss was placed in her bladder. A weighted speculum was placed in the posterior fornix of the vagina and a Cool speculum was placed in the anterior wall of the vagina. A single-tooth tenaculum was placed at the anterior lip of the cervix. The cervix was then gently dilated. The uterus was sounded to 8 cm. The Humi uterine manipulator was placed without difficulty into the uterus. Attention was then turned to the patient's abdomen. Half percent Marcaine was injected prior to each incision that was made. A 5 mm incision was made infra-umbilically. The Veress needle was introduced into the abdomen and placement of the needle was confirmed using the saline drop method. The carbon dioxide gas was then applied with an opening pressure of 3 mm Hg, high flow was turned down and pneumoperitoneum was obtained at 15 mmHg. The Veress needle was removed and the 5-mm sheath and trocar were placed through the incision into the abdominal cavity. The trocar was removed and the camera was placed through the port and a diagnostic laparoscopy was begun with findings as noted above. Subsequently, two additional 5 mm incisions were made, one initially in the left lower quadrant and then one in the right lower quadrant. The subsequent ports were placed under direct visualization. The right tube was grasped with the atraumatic grasper and the LigaSure was used to come across the tube and the mesosalpinx with cautery followed by cut and the tube was freed and placed at the anterior cul-de-sac. The abdomen was then irrigated and the fluid was suctioned. The left lower quadrant incision was then extended to accommodate 10 trocar and sheath. Following the placement of this port, an EndoCatch bag was placed and the specimen was placed in the EndoCatch bag and removed from the cavity. At the end of the procedure, the pneumoperitoneum was evacuated and all the ports were removed from the abdomen. The fascia at the 10 mm port was closed with 2 interrupted stitches of 0 Vicryl. The 10 mm incision was closed with subcuticular stitch. The other incisions were closed with a single stitch of 4-0 Monocryl and Dermabond was placed over all the incisions. The Strauss was removed from the bladder and the the HUMI was removed from the uterus. The tenaculum sites were examined and found to be hemostatic. All counts were correct. The patient tolerated the procedure well and was taken to the recovery room in stable condition. Anette Kumar MD CYNTHIA
--- NOTE | 2017-12-23 15:42 | CARD ---
APPROVED REPORT EKG Measurement Heart [id number] <Conclusion> Normal sinus rhythm Possible Inferior infarct, age undetermined Abnormal ECG
--- NOTE | 2017-12-24 00:09 | CARD ---
APPROVED REPORT EKG Measurement Heart [id number] <Conclusion> Normal sinus rhythm with sinus arrhythmia Possible Left atrial enlargement Incomplete right bundle branch block Cannot rule out Inferior infarct, age undetermined Abnormal ECG
--- NOTE | 2017-12-24 00:09 | CARD ---
APPROVED REPORT EKG Measurement Heart [id number] <Conclusion> Normal sinus rhythm Incomplete right bundle branch block Cannot rule out Inferior infarct, age undetermined Abnormal ECG
== END 2017-12-23 15:15 | disposition home or self-care (01) | DRG 378 ==
LOC: H.ER 23:09 → H.ERHOLD 12-23 04:02 → H.MEDSURG1 12-23 07:34
PROVIDERS: ADMIT Obstetrics & Gynecology; ATTEND Obstetrics & Gynecology
PROC: 10T24ZZ Resection of Products of Conception, Ectopic, Percutaneous Endoscopic Approach (ICD-10-PCS; 2017-12-23)
PROC: 0UB54ZZ Excision of Right Fallopian Tube, Percutaneous Endoscopic Approach (ICD-10-PCS; principal; 2017-12-23 07:00)
DX: O00.101 Right tubal pregnancy without intrauterine pregnancy (principal); K29.70 Gastritis, unspecified, without bleeding; E78.00 Pure hypercholesterolemia, unspecified; R94.31 Abnormal electrocardiogram [ECG] [EKG]

== ENCOUNTER 2018-03-27 09:51 | Day surgery (SDC) | payer SELFPAY ==
[2018-03-27] MEDS ORDERED: Lactated Ringer's 500 ML IV ONE (11:08)
[2018-03-27 11:13] VITALS: TEMP 98; O2SAT 99
[2018-03-27] MEDS ORDERED: Propofol 10 mg/ml Inj (20 ML) ONE (12:02)
[2018-03-27 12:34] VITALS: BP 99/59; PULSE 61; RESP 14
== END 2018-03-27 12:40 | disposition home or self-care (01) ==
LOC: H.ENDO 09:51
PROVIDERS: ATTEND Internal Medicine Gastroenterology
DX: K30 Functional dyspepsia (principal); K21.9 Gastro-esophageal reflux disease without esophagitis; K29.70 Gastritis, unspecified, without bleeding; R10.13 Epigastric pain
CPT/HCPCS: 43239; 88305; J2001; J2704; J7120